=== PATIENT | male | born 1990 | race Caucasian/White ===

== ENCOUNTER 2017-07-06 06:13 | Emergency (ER) | payer MEDICAID ==
[~2017-07-06] VITALS: Ht 180.3 cm; Wt 84.4 kg
[~2017-07-06 06:13] MED LIST: SULF1TAB24; SULF1TAB24 PO
[2017-07-06 06:20] VITALS: BP 149/91
== END 2017-07-06 06:52 | disposition home or self-care (01) ==
LOC: ED 06:51
DX: L02.01 Cutaneous abscess of face (principal); F17.210 Nicotine dependence, cigarettes, uncomplicated; F15.10 Other stimulant abuse, uncomplicated
CPT/HCPCS: 99283

== ENCOUNTER 2017-09-13 19:33 | Emergency (ER) | payer MEDICAID ==
[~2017-09-13] VITALS: Ht 180.3 cm; Wt 82.3 kg
[2017-09-13 19:37] VITALS: BP 142/90
[2017-09-13] MEDS ORDERED: penicillin (19:46)
[2017-09-13] MEDS ORDERED: LIDOCAINE 1%, 20ML ONE (20:03)
== END 2017-09-13 20:16 | disposition home or self-care (01) ==
LOC: ED 20:10
DX: K04.7 Periapical abscess without sinus (principal)
CPT/HCPCS: 99281

== ENCOUNTER 2017-10-18 22:39 | Emergency (ER) | payer MEDICAID ==
[~2017-10-18] VITALS: Ht 180.3 cm; Wt 87.4 kg
[~2017-10-18 22:39] MED LIST changes: +penicillin
[2017-10-18 22:46] VITALS: BP 126/93
== END 2017-10-18 23:17 | disposition home or self-care (01) ==
LOC: ED 23:10
DX: M79.641 Pain in right hand (principal); G89.29 Other chronic pain
CPT/HCPCS: 99281